=== PATIENT | female | born 1950 | race Caucasian/White ===

== ENCOUNTER 2018-07-30 18:23 | Inpatient (IN) | payer MEDICARE, MEDICAID ==
[~2018-07-30] VITALS: Ht 160 cm; Wt 55.8 kg
[~2018-07-30 18:23] MED LIST: ASPI-1159 PO; ATOR10TA69 PO; CEPH500C2 PO; LISI10TA5 PO; QUET300T2 PO; SULF1TAB48 PO; TRAM50TA3 PO; TRAZ-213 PO; TRAZ300T11 PO
[2018-07-30 19:56] LABS: HEMATOCRIT. 38.4 % (36.0-48.0); HEMOGLOBIN. 12.9 g/dL (12.0-16.0); MEAN CORPUSCULAR HEMOGLOBIN 29.4 pg (28.0-32.0); MEAN CORPUSCULAR VOLUME 87.8 fL (81.0-99.0); PLATELET 454 x1000/uL (130-400); RED BLOOD CELL COUNT 4.38 mill/uL (4.2-5.4); RED CELL DISTRIBUTION WIDTH 14.9 % (11.6-14.6)
[2018-07-30 20:10] LABS: CHLORIDE 101 mEq/L (98-107)
[2018-07-30 20:15] LABS: ETHANOL BLOOD < 10 mg/dL
[2018-07-30 20:40] LABS: PLATELET ESTIMATE INCREASED
[2018-07-30 20:57] LABS: CLARITY URINE CLEAR (CLEAR); COLOR URINE YELLOW (YELLOW); KETONES URINE NEGATIVE (NEGATIVE); LEUKOCYTE ESTERASE URINE 2+ (NEGATIVE); NITRITE URINE NEGATIVE (NEGATIVE); OCCULT BLOOD URINE NEGATIVE (NEGATIVE); PH URINE 6.5 (4.5-8.0); PROTEIN URINE NEGATIVE (NEGATIVE); SPECIFIC GRAVITY URINE 1.009 (1.005-1.030); UROBILINOGEN URINE 0.2 E.U./dL (0.2-1.0)
[2018-07-30] MEDS ORDERED: SODIUM CHLORIDE 0.9% 1,000 ML IV ONE (21:07)
[2018-07-30] MEDS ORDERED: POTASSIUM CHLORIDE 20MEQ TABLET SR PO ONE ×2 (21:15)
[2018-07-30] MEDS ORDERED: CEPHALEXIN 250MG CAPSULE PO ONE (21:15)
[2018-07-30 21:21] LABS: *AMPHETAMINES SCREEN URINE NEGATIVE (NEGATIVE); *BARBITURATES SCREEN URINE NEGATIVE (NEGATIVE); *BENZODIAZEPINES SCREEN URINE NEGATIVE (NEGATIVE); *COCAINE SCREEN URINE NEGATIVE (NEGATIVE); CANNABINOID URINE SCREEN NEGATIVE (NEGATIVE); METHADONE URINE SCREEN NEGATIVE (NEGATIVE); OPIATES URINE SCREEN NEGATIVE (NEGATIVE); PHENCYCLIDINE URINE SCREEN NEGATIVE (NEGATIVE)
[2018-07-31] VITALS (7 sets, daily range): BP systolic 132–180; BP diastolic 62–100
[2018-07-31] MEDS ORDERED: ACETAMINOPHEN 325MG TABLET PO PRN (01:45)
[2018-07-31] MEDS ORDERED: TRAMADOL 50MG TABLET PO PRN (01:45)
[2018-07-31] MEDS ORDERED: DOCUSATE SODIUM 100MG CAPSULE PO PRN (01:45)
[2018-07-31] MEDS ORDERED: VANCOMYCIN 1 G PREMIX 200 ML IV SCH ×2 (01:45→20:00)
[2018-07-31] MEDS ORDERED: POTASSIUM CHLORIDE 20MEQ TABLET SR PO NR (03:00)
[2018-07-31] MEDS ORDERED: AMLO10TA80 PO (03:20)
[2018-07-31] MEDS ORDERED: BUSP15TA3 PO (03:20)
[2018-07-31] MEDS ORDERED: SODIUM CHLORIDE 0.9% 1,000 ML IV SCH (03:30)
[2018-07-31] MEDS ORDERED: POTASSIUM CHLORIDE INJ 40 MEQ in DEXT 5% WATER 250 ML IV NR (05:00)
[2018-07-31] MEDS ORDERED: PAMIDRONATE DISODIUM 90 MG in SODIUM CHLORIDE 0.9% 500 ML IV NR (06:00)
[2018-07-31 07:00] LABS: HEMATOCRIT. 38.4 % (36.0-48.0); HEMOGLOBIN. 12.6 g/dL (12.0-16.0); MEAN CORPUSCULAR HEMOGLOBIN 28.9 pg (28.0-32.0); MEAN CORPUSCULAR VOLUME 88.6 fL (81.0-99.0); MEAN PLATELET VOLUME 9.6 fl (7.4-10.4); PLATELET 431 x1000/uL (130-400); RED BLOOD CELL COUNT 4.34 mill/uL (4.2-5.4); RED CELL DISTRIBUTION WIDTH 15.5 % (11.6-14.6)
[2018-07-31 07:27] LABS: CHLORIDE 104 mEq/L (98-107)
[2018-07-31] MEDS ORDERED: VANCOMYCIN 1 G PREMIX 200 ML IV NR (08:00)
[2018-07-31] MEDS ORDERED: PNEUMOCOCCAL 23-VAL P-SAC VAC 0.5 ML IM ONE (08:00)
[2018-07-31] MEDS ORDERED: QUETIAPINE FUMARATE 100MG TABLET PO SCH (09:00)
[2018-07-31] MEDS ORDERED: ASPIRIN 81MG TABLET PO SCH (09:00)
[2018-07-31] MEDS ORDERED: ENOXAPARIN 40MG/0.4ML SYR SUBCUT SCH (09:00)
[2018-07-31] MEDS ORDERED: LISINOPRIL 10MG TABLET PO SCH (09:00)
[2018-07-31 13:29] LABS: PLATELET ESTIMATE INCREASED
[2018-07-31] MEDS ORDERED: NICOTINE 21MG PATCH TD SCH (14:15)
[2018-07-31] MEDS ORDERED: PIPERACILLIN/TAZ 3.375G PREMIX 50 ML IV SCH (16:00)
[2018-07-31 16:44] LABS: T4 FREE 1.21 ng/dL (0.76-1.46)
[2018-07-31] MEDS ORDERED: ATORVASTATIN CALCIUM 10MG TABLET PO SCH (21:00)
[2018-08-01 13:06] LABS: A/G RATIO 0.7 (0.7-1.7); ALBUMIN 2.7 g/dL (2.9-4.4); ALPHA-1-GLOBULIN 0.2 g/dL (0.0-0.4); ALPHA-2-GLOBULIN 0.9 g/dL (0.4-1.0); BETA GLOBULIN 1.3 g/dL (0.7-1.3); GAMMA GLOBULINS 1.4 g/dL (0.4-1.8); GLOBULIN TOTAL 3.8 g/dL (2.2-3.9); M-SPIKE Not Observed g/dL (Not Observed); TOTAL PROTEIN SERUM 6.5 g/dL (6.0-8.5)
[2018-08-02 09:07] LABS: IMMUNOGLOBULIN A 609 mg/dL (87-352); IMMUNOGLOBULIN G 1359 mg/dL (700-1600); IMMUNOGLOBULIN M 132 mg/dL (26-217)
[2018-08-02 10:08] LABS: VITAMIN D 25-OH 34.8 ng/mL (30.0-100.0)
[2018-08-05 04:18] LABS: ANGIOTENSION CONVERTING ENZYME < 15 U/L (14-82)
== END 2018-07-31 18:20 | disposition short-term general hospital (02) | DRG 640 ==
LOC: ER 18:23 → 7WST 21:17 → EDBEDREQTM 21:24 → EDBEDREQ 21:24 → ENRESERV 23:23
PROVIDERS: ADMIT Ophthalmology; ATTEND Ophthalmology
DX: E83.52 Hypercalcemia (principal); L89.224 Pressure ulcer of left hip, stage 4; I38 Endocarditis, valve unspecified; E78.5 Hyperlipidemia, unspecified; E83.51 Hypocalcemia; F17.200 Nicotine dependence, unspecified, uncomplicated; F31.9 Bipolar disorder, unspecified; I10 Essential (primary) hypertension; D64.9 Anemia, unspecified; E87.6 Hypokalemia; F17.210 Nicotine dependence, cigarettes, uncomplicated; Z81.3 Family history of other psychoactive substance abuse and dependence; Z79.899 Other long term (current) drug therapy; C80.1 Malignant (primary) neoplasm, unspecified
CPT/HCPCS: 36415; 71045; 80305; 80307; 80329; 81025; 82164; 82306; 82330; 82652; 82784; 83735; 83970; 84155; 84165; 84439; 84443; 86334; 93005; 96360; 96361; 99285; G0482; J1650; J2430; J2543; J3370; J3480; J7030; J7040; J7060

== ENCOUNTER 2018-10-04 19:05 | Inpatient (IN) | payer MEDICARE, MEDICAID ==
[~2018-10-04] VITALS: Ht 158.8 cm; Wt 48.5 kg
[~2018-10-04 19:05] MED LIST changes: +AMLO10TA80 PO; +BUSP15TA3 PO; -CEPH500C2 PO; -SULF1TAB48 PO; -TRAZ300T11 PO
[2018-10-05 01:14] LABS: HEMATOCRIT. 44.4 % (36.0-48.0); HEMOGLOBIN. 14.4 g/dL (12.0-16.0); MEAN CORPUSCULAR HEMOGLOBIN 28.7 pg (28.0-32.0); MEAN CORPUSCULAR VOLUME 88.9 fL (81.0-99.0); PLATELET 455 x1000/uL (130-400); RED CELL DISTRIBUTION WIDTH 14.9 % (11.6-14.6)
[2018-10-05] MEDS ORDERED: VANCOMYCIN 1 G PREMIX 200 ML IV SCH (01:30)
[2018-10-05] MEDS ORDERED: MAGNESIUM 1 G PREMIX 100 ML IV ONE (01:45)
[2018-10-05] MEDS ORDERED: SODIUM CHLORIDE 0.9% 1000ML BAG (SEPSIS BOLUS) IV ONE ×2 (01:45)
[2018-10-05] MEDS ORDERED: POTASSIUM CHLORIDE 20MEQ TABLET SR PO ONE (01:45)
[2018-10-05] MEDS ORDERED: ASPIRIN 81MG TABLET PO ONE (02:00)
[2018-10-05 02:03] LABS: INR 1.1; PARTIAL THROMBOPLASTIN TIME 24.6 sec (23.4-31.0); PROTHROMBIN TIME 10.7 sec (9.1-11.1)
[2018-10-05 02:06] LABS: CREATINE KINASE MB FRACTION 11.1 ng/mL (0.5-3.6)
[2018-10-05 02:54] LABS: BETA HYDROXYBUTYRATE 0.3 mMol/L (0.0-0.3)
[2018-10-05 04:14] LABS: ATYPICAL LYMPHOCYTES 3
[2018-10-05 04:15] LABS: PLATELET ESTIMATE SLIGHTLY INCREASED
[2018-10-05 04:50] LABS: CLARITY URINE CLEAR (CLEAR); COLOR URINE YELLOW (YELLOW); KETONES URINE NEGATIVE (NEGATIVE); LEUKOCYTE ESTERASE URINE 1+ (NEGATIVE); NITRITE URINE NEGATIVE (NEGATIVE); OCCULT BLOOD URINE NEGATIVE (NEGATIVE); PROTEIN URINE NEGATIVE (NEGATIVE); SPECIFIC GRAVITY URINE 1.013 (1.005-1.030); UROBILINOGEN URINE 0.2 E.U./dL (0.2-1.0)
[2018-10-05] MEDS: PIPERACILLIN/TAZOBACTAM 3.375GM/50ML PREMIX IV ONE ×2 (07:56→08:21)
[2018-10-05 09:00] VITALS: BP 116/50
[2018-10-05 10:00] VITALS: BP 116/50
[2018-10-05 12:00] VITALS: BP 132/56
[2018-10-05] MEDS ORDERED: LISINOPRIL 10MG TABLET PO SCH (12:00)
[2018-10-05] MEDS ORDERED: AMLODIPINE 10MG TABLET PO SCH ×2 (12:00→15:30)
[2018-10-05] MEDS ORDERED: ASPIRIN 81MG TABLET PO SCH (12:00)
[2018-10-05] MEDS ORDERED: TRAMADOL 50MG TABLET PO PRN ×2 (12:00→15:30)
[2018-10-05] MEDS ORDERED: HYDROCODONE/ACETAMINOPHEN 5/325MG TABLET PO PRN (15:30)
[2018-10-05] MEDS ORDERED: ASPIRIN 81MG EC TABLET PO SCH (15:30)
[2018-10-05 16:00] VITALS: BP 117/50
[2018-10-05] MEDS ORDERED: SODIUM CHLORIDE 0.9% 1,000 ML IV SCH (16:30)
[2018-10-05] MEDS ORDERED: PAMIDRONATE DISODIUM 90 MG in SODIUM CHLORIDE 0.9% 500 ML IV NR (17:30)
[2018-10-05] MEDS ORDERED: PIPERACILLIN/TAZ 3.375G PREMIX 50 ML IV SCH (17:30)
[2018-10-05 18:08] LABS: HEMATOCRIT. 38.8 % (36.0-48.0); HEMOGLOBIN. 12.1 g/dL (12.0-16.0); MEAN CORPUSCULAR HEMOGLOBIN 28.5 pg (28.0-32.0); MEAN CORPUSCULAR VOLUME 91.6 fL (81.0-99.0); MEAN PLATELET VOLUME 8.7 fl (7.4-10.4); PLATELET 394 x1000/uL (130-400); RED BLOOD CELL COUNT 4.24 mill/uL (4.2-5.4)
[2018-10-05 19:07] LABS: PLATELET ESTIMATE NORMAL
[2018-10-05 20:00] VITALS: BP 127/53
[2018-10-05 20:46] VITALS: BP 127/53
[2018-10-05] MEDS ORDERED: BUSPIRONE HCL 10MG TABLET PO SCH (21:00)
[2018-10-05] MEDS ORDERED: TRAZODONE HCL 100MG TABLET PO SCH (21:00)
[2018-10-05] MEDS ORDERED: HEPARIN 5000 UNITS/ML VIAL SUBCUT SCH (21:00)
[2018-10-05] MEDS ORDERED: ATORVASTATIN CALCIUM 40MG TABLET PO SCH (21:00)
[2018-10-05] MEDS ORDERED: TRAZODONE HCL 50MG TABLET PO SCH (21:00)
[2018-10-05] MEDS ORDERED: ATORVASTATIN CALCIUM 10MG TABLET PO SCH ×2 (21:00)
[2018-10-06] MEDS ORDERED: DOCUSATE SODIUM 100MG CAPSULE PO SCH (09:00)
[2018-10-06] MEDS ORDERED: QUETIAPINE FUMARATE 100MG TABLET PO SCH ×2 (09:00→21:00)
[2018-10-06] MEDS ORDERED: LISINOPRIL 10MG TABLET PO SCH (09:00)
== END 2018-10-05 22:24 | disposition short-term general hospital (02) | DRG 640 ==
LOC: ER 19:05 → EDBEDREQTM 10-05 02:39 → EDBEDREQ 10-05 02:39 → EDBEDREQTM 10-05 02:48 → EDBEDREQ 10-05 02:48 → ENRESERV 10-05 08:34 → 5WST 10-05 09:45
PROVIDERS: ADMIT Internal Medicine; ATTEND Internal Medicine
DX: E83.52 Hypercalcemia (principal); L89.94 Pressure ulcer of unspecified site, stage 4; N39.0 Urinary tract infection, site not specified; R55 Syncope and collapse; D72.829 Elevated white blood cell count, unspecified; E78.5 Hyperlipidemia, unspecified; F17.200 Nicotine dependence, unspecified, uncomplicated; F31.9 Bipolar disorder, unspecified; I10 Essential (primary) hypertension; J44.9 Chronic obstructive pulmonary disease, unspecified; W19.XXXA Unspecified fall, initial encounter; Y93.89 Activity, other specified; Y92.89 Other specified places as the place of occurrence of the external cause; Y99.8 Other external cause status
CPT/HCPCS: 36415; 71046; 80048; 80061; 82010; 82330; 82550; 82553; 83036; 83605; 83735; 84484; 87077; 87186; 93005; 96365; 96366; 96367; 96375; 99285; J1644; J2430; J2543; J3370; J3475; J7030; J7040

== ENCOUNTER 2018-12-14 20:50 | Inpatient (IN) | payer MEDICARE, MEDICAID ==
[~2018-12-14] VITALS: Ht 160 cm; Wt 47.2 kg
[2018-12-14] MEDS ORDERED: ONDANSETRON HCL 4MG/2ML INJ IV STA (23:06)
[2018-12-14] MEDS ORDERED: SODIUM CHLORIDE 0.9% 1,000 ML IV ONE (23:06)
[2018-12-14] MEDS ORDERED: MORPHINE SULFATE 4 MG/ML CPJ (NOT FOR IM USE) IV STA (23:06)
[2018-12-14] MEDS ORDERED: VANCOMYCIN 1 G PREMIX 200 ML IV ONE (23:15)
[2018-12-14] MEDS ORDERED: PIPERACILLIN/TAZ 3.375G PREMIX 50 ML IV ONE (23:15)
[2018-12-14 23:34] LABS: HEMATOCRIT. 42.5 % (36.0-48.0); HEMOGLOBIN. 13.5 g/dL (12.0-16.0); MEAN CORPUSCULAR HEMOGLOBIN 27.1 pg (28.0-32.0); MEAN CORPUSCULAR VOLUME 85.4 fL (81.0-99.0); MEAN PLATELET VOLUME 7.3 fl (7.4-10.4); PLATELET 508 x1000/uL (130-400); RED BLOOD CELL COUNT 4.97 mill/uL (4.2-5.4); RED CELL DISTRIBUTION WIDTH 16.9 % (11.6-14.6)
[2018-12-14 23:41] LABS: CHLORIDE 94 mEq/L (98-107)
[2018-12-15] MEDS ORDERED: POTASSIUM CHLORIDE 20MEQ TABLET SR PO SCH ×3 (01:00→10:15)
[2018-12-15 01:05] LABS: PLATELET ESTIMATE INCREASED
[2018-12-15] MEDS ORDERED: IOHEXOL-350 100 ML BOTTLE ONE (01:48)
[2018-12-15 05:00] VITALS: BP 94/40
[2018-12-15 08:05] VITALS: BP 95/41
[2018-12-15] MEDS ORDERED: ENOXAPARIN 40MG/0.4ML SYR SUBCUT SCH (09:00)
[2018-12-15] MEDS: ENOXAPARIN 30MG/0.3ML SYR SUBCUT SCH (09:12)
[2018-12-15 12:52] VITALS: BP 104/44
[2018-12-15 16:07] VITALS: BP 101/47
[2018-12-15 20:05] VITALS: BP 106/43
[2018-12-15 20:20] LABS: HEMATOCRIT. 40.7 % (36.0-48.0); HEMOGLOBIN. 12.5 g/dL (12.0-16.0); MEAN CORPUSCULAR HEMOGLOBIN 26.8 pg (28.0-32.0); MEAN CORPUSCULAR VOLUME 87.5 fL (81.0-99.0); MEAN PLATELET VOLUME 8.1 fl (7.4-10.4); PLATELET 467 x1000/uL (130-400); RED BLOOD CELL COUNT 4.66 mill/uL (4.2-5.4); RED CELL DISTRIBUTION WIDTH 17.3 % (11.6-14.6)
[2018-12-15 20:51] LABS: PHOSPHORUS 1.8 mg/dL (2.5-4.9)
[2018-12-15 21:07] LABS: PLATELET ESTIMATE SLIGHTLY INCREASED
[2018-12-15] MEDS ORDERED: CARISOPRODOL 350 MG TABLET PO PRN (23:15)
[2018-12-15] MEDS ORDERED: HYDROCODONE/ACETAMINOPHEN 10/325MG TABLET PO PRN (23:15)
[2018-12-15] MEDS ORDERED: SODIUM PHOS,M-BASIC-D-BASIC 20 MM in DEXT 5% WATER 243.3333 ML IV NR (23:30)
[2018-12-15] MEDS: BUSPIRONE HCL 5MG TABLET PO SCH (23:40)
[2018-12-15] MEDS: TRAZODONE HCL 100MG TABLET PO SCH (23:41)
[2018-12-15] MEDS: DOCUSATE SODIUM 100MG CAPSULE PO SCH (23:41)
[2018-12-15] MEDS: MULTIVITAMINS,THER W-MINERALS TABLET PO SCH (23:41)
[2018-12-16] VITALS: BP 109/68
[2018-12-16 04:00] VITALS: BP 114/53
[2018-12-16] MEDS: BUSPIRONE HCL 5MG TABLET PO SCH ×3 (06:02→21:46)
[2018-12-16 06:39] LABS: HEMATOCRIT 39.8 % (36.0-48.0); HEMOGLOBIN 12.4 g/dL (12.0-16.0); MEAN CORPUSCULAR VOLUME 86.8 fL (81.0-99.0); PLATELET 433 x1000/uL (130-400); RED BLOOD CELL COUNT 4.58 mill/uL (4.2-5.4); RED CELL DISTRIBUTION WIDTH 17.4 % (11.6-14.6)
[2018-12-16 07:34] LABS: PHOSPHORUS 4.1 mg/dL (2.5-4.9)
[2018-12-16] MEDS: ENOXAPARIN 30MG/0.3ML SYR SUBCUT SCH (08:16)
[2018-12-16] MEDS: MULTIVITAMINS,THER W-MINERALS TABLET PO SCH (08:19)
[2018-12-16] MEDS: OXYCODONE HCL 10MG TABLET SR 12HR PO SCH ×2 (08:19→21:45)
[2018-12-16] MEDS: DOCUSATE SODIUM 100MG CAPSULE PO SCH ×2 (08:19→18:58)
[2018-12-16 08:25] VITALS: BP 115/48
[2018-12-16 12:09] VITALS: BP 127/42
[2018-12-16 15:36] VITALS: BP_SYST 127; BP_SYST 97; BP_DIAS 40; BP_DIAS 42
[2018-12-16 20:00] VITALS: BP 106/51
[2018-12-16] MEDS: TRAZODONE HCL 100MG TABLET PO SCH (21:45)
[2018-12-17] VITALS (7 sets, daily range): BP systolic 98–132; BP diastolic 41–69
[2018-12-17] MEDS: BUSPIRONE HCL 5MG TABLET PO SCH ×3 (06:07→21:21)
[2018-12-17] MEDS: OXYCODONE HCL 10MG TABLET SR 12HR PO SCH ×2 (09:00→21:20)
[2018-12-17] MEDS: MULTIVITAMINS,THER W-MINERALS TABLET PO SCH (09:03)
[2018-12-17] MEDS: DOCUSATE SODIUM 100MG CAPSULE PO SCH (09:05)
[2018-12-17] MEDS: ENOXAPARIN 40MG/0.4ML SYR SUBCUT SCH (09:05)
[2018-12-17] MEDS: TRAZODONE HCL 100MG TABLET PO SCH (21:21)
[2018-12-18 04:00] VITALS: BP 105/62
[2018-12-18] MEDS: BUSPIRONE HCL 5MG TABLET PO SCH ×3 (05:46→21:13)
[2018-12-18] MEDS: MULTIVITAMINS,THER W-MINERALS TABLET PO SCH (09:01)
[2018-12-18] MEDS: DOCUSATE SODIUM 100MG CAPSULE PO SCH ×3 (09:02→17:25)
[2018-12-18] MEDS: OXYCODONE HCL 10MG TABLET SR 12HR PO SCH ×2 (09:11→21:14)
[2018-12-18] MEDS: ENOXAPARIN 40MG/0.4ML SYR SUBCUT SCH (09:13)
[2018-12-18 11:10] VITALS: BP 109/53
[2018-12-18 15:23] VITALS: BP 104/54
[2018-12-18 19:53] VITALS: BP 104/65
[2018-12-18] MEDS: TRAZODONE HCL 100MG TABLET PO SCH (21:13)
[2018-12-19] VITALS: BP 94/61
[2018-12-19 04:00] VITALS: BP 109/54
[2018-12-19] MEDS: BUSPIRONE HCL 5MG TABLET PO SCH (07:12)
[2018-12-19] MEDS: MULTIVITAMINS,THER W-MINERALS TABLET PO SCH (09:00)
[2018-12-19] MEDS: ENOXAPARIN 40MG/0.4ML SYR SUBCUT SCH (09:00)
[2018-12-19] MEDS: DOCUSATE SODIUM 100MG CAPSULE PO SCH (09:00)
[2018-12-19] MEDS: OXYCODONE HCL 10MG TABLET SR 12HR PO SCH (09:00)
[2018-12-19 09:06] VITALS: BP 124/71
== END 2018-12-19 13:53 | disposition expired | DRG 73 ==
LOC: ER 21:57 → 6WST 12-15 01:17 → EDBEDREQTM 12-15 01:22 → EDBEDREQ 12-15 01:22 → ENRESERV 12-15 02:39
PROVIDERS: ADMIT Internal Medicine Pulmonary Disease; ATTEND Internal Medicine Pulmonary Disease
DX: G90.8 Other disorders of autonomic nervous system (principal); E43 Unspecified severe protein-calorie malnutrition; G93.41 Metabolic encephalopathy; C78.00 Secondary malignant neoplasm of unspecified lung; E78.5 Hyperlipidemia, unspecified; E83.52 Hypercalcemia; E87.6 Hypokalemia; F31.9 Bipolar disorder, unspecified; D72.829 Elevated white blood cell count, unspecified; I10 Essential (primary) hypertension; Z51.5 Encounter for palliative care; F03.90 Unspecified dementia, unspecified severity, without behavioral disturbance, psychotic disturbance, mood disturbance, and anxiety; F11.90 Opioid use, unspecified, uncomplicated; Z66 Do not resuscitate; Z87.891 Personal history of nicotine dependence; Z92.3 Personal history of irradiation; D04.72 Carcinoma in situ of skin of left lower limb, including hip
CPT/HCPCS: 36415; 71045; 71275; 73502; 73552; 80048; 82310; 83605; 83735; 84100; 84145; 85027; 87070; 87077; 87186; 93005; 96374; 99285; J1650; J2270; J2405; J2543; J3370; J3490; J7030; J7050; J7060; Q9967